=== PATIENT | female | born 2005 | race American Indian/Alaskan Native ===

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

== ENCOUNTER 2025-07-11 16:19 | Observation (INO) | payer SELFPAY ==
[2025-07-11] MEDS ORDERED: Lactated Ringers 1,000 ML IV ONE (16:49)
[2025-07-11] MEDS ORDERED: fentaNYL 100 MCG/2 ML SDV IVPUSH PRN (16:49)
[2025-07-11] MEDS ORDERED: Carboprost Tromethamine 250 MCG/1 ML Amp IM PRN (16:49)
[2025-07-11] MEDS ORDERED: Sodium Chloride 0.9% 10 ML Syringe FLUSH PRN (16:49)
[2025-07-11] MEDS ORDERED: Ondansetron 4 MG/2 ML SDV IVPUSH PRN (16:49)
[2025-07-11] MEDS ORDERED: Nalbuphine HCl 10 MG/ 1ML Amp IM ONE (16:51)
[2025-07-11] MEDS ORDERED: Oxytocin/Lactated Ringers 30 UNIT/500 ML BAG IV SCH (17:00)
[2025-07-11] MEDS ORDERED: Lactated Ringers 1,000 ML IV SCH (17:00)
[2025-07-11 17:27] LABS: PLATELET COUNT,PLT 154.0 10^3/uL (150-450); RED BLOOD CELL COUNT 4.16 10^6/uL (4.2-5.4); WHITE BLOOD CELL COUNT,WBC 7.8 10^3/uL (5.0-10.0)
[2025-07-11 19:46] VITALS: BP 132/68; PULSE 97
== END 2025-07-11 20:21 | disposition home or self-care (01) ==
LOC: DL.OBCHECK 16:19 → DL.OB 16:49
PROVIDERS: ADMIT Family Medicine; ATTEND Family Medicine
DX: O47.1 False labor at or after 37 completed weeks of gestation (principal); O99.013 Anemia complicating pregnancy, third trimester; D64.9 Anemia, unspecified; F17.290 Nicotine dependence, other tobacco product, uncomplicated; Z3A.37 37 weeks gestation of pregnancy; Z79.899 Other long term (current) drug therapy
CPT/HCPCS: 36415; 85027; A9270-GY; G0378

== ENCOUNTER 2025-07-15 19:59 | Inpatient (IN) | payer SELFPAY ==
[2025-07-15] MEDS: Lactated Ringers 1,000 ML IV SCH ×2 (20:24→23:16)
[2025-07-15 20:49] LABS: BASOPHILS PERCENT AUTO 0.1 % (0.0-1.0); EOSINOPHILS PERCENT AUTO 0.4 % (1.0-3.0); LYMPHOCYTES PERCENT AUTO 24.1 % (20.5-50.1); MONOCYTES PERCENT AUTO 6.2 % (2-8); NEUTROPHILS PERCENT AUTO 69.2 % (42.2-75.2); PLATELET COUNT,PLT 307 10^3/uL (150-450); RED BLOOD CELL COUNT 3.95 10^6/uL (4.2-5.4); WHITE BLOOD CELL COUNT,WBC 7.8 10^3/uL (5.0-10.0)
[2025-07-15 21:09] LABS: ALANINE AMINOTRANSFERASE,ALT 17 U/L (14-59); ASPARTATE AMNIOTRANSFERASE,AST 14 U/L (15-37); BILIRUBIN TOTAL 0.6 mg/dL (0.2-1.0); BLOOD UREA NITROGEN,BUN 8 mg/dL (7-18); CARBON DIOXIDE,CO2 23 mmol/L (21-32); CHLORIDE,CL 104 mmol/L (98-107); CREATININE 0.59 mg/dL (0.55-1.02); GLUCOSE RANDOM 138 mg/dL (70-99); POTASSIUM,K 3.5 mmol/L (3.5-5.1); PROTEIN TOTAL,TP 6.8 g/dL (6.4-8.2); SODIUM,NA 138 mmol/L (136-145)
[2025-07-15 21:11] LABS: A/G RATIO 0.70; ESTIMATED GFR 132 mL/min (>=60)
[2025-07-15] MEDS ORDERED: Carboprost Tromethamine 250 MCG/1 ML Amp IM PRN (22:57)
[2025-07-15] MEDS ORDERED: Ondansetron 4 MG/2 ML SDV IVPUSH PRN (22:57)
[2025-07-15] MEDS ORDERED: Sodium Chloride 0.9% 10 ML Syringe FLUSH PRN (22:57)
[2025-07-15] MEDS ORDERED: Lactated Ringers 1,000 ML IV ONE (22:57)
[2025-07-15] MEDS: Oxytocin/Normal Saline 30 UNIT/500 ML BAG IV SCH (23:16)
[2025-07-16] MEDS ORDERED: ePHEDrine 50 MG/ML SDV IVPUSH PRN (01:14)
[2025-07-16] MEDS ORDERED: Ropivacaine 200 MG in Premix Bag 1 BAG EPIDUR SCH (01:15)
[2025-07-16] MEDS ORDERED: Oxytocin 10 Units/1 ML SDV IM PRN (05:49)
[2025-07-16] MEDS ORDERED: Carboprost Tromethamine 250 MCG/1 ML Amp IM PRN (05:49)
[2025-07-16] MEDS: Witch Hazel Medicated Pads 100/Jar TOP PRN (08:04)
[2025-07-16] MEDS: Benzocaine/Menthol 20%-0.5% Spray 78 GM Cannister TOP PRN (08:04)
[2025-07-16] MEDS: Prenatal Multivitamin with Calcium/Folic Acid/Iron Tab PO SCH (08:05)
[2025-07-17 09:59] VITALS: BP 115/58; PULSE 72
== END 2025-07-17 13:40 | disposition home or self-care (01) | DRG 807 ==
LOC: DL.OBCHECK 19:59 → DL.OB 22:57 → OBSVTOIN 07-16 05:31
PROVIDERS: ADMIT Family Medicine; ATTEND Family Medicine
PROC: 10E0XZZ Delivery of Products of Conception, External Approach (ICD-10-PCS; principal; 2025-07-16)
PROC: 3E0R3BZ Introduction of Anesthetic Agent into Spinal Canal, Percutaneous Approach (ICD-10-PCS; 2025-07-16)
PROC: 00HU33Z Insertion of Infusion Device into Spinal Canal, Percutaneous Approach (ICD-10-PCS; 2025-07-16)
DX: O23.43 Unspecified infection of urinary tract in pregnancy, third trimester (principal); Z37.0 Single live birth; O77.0 Labor and delivery complicated by meconium in amniotic fluid; O76 Abnormality in fetal heart rate and rhythm complicating labor and delivery; Z3A.38 38 weeks gestation of pregnancy
CPT/HCPCS: 36415; 59409; 80053; 83605; 85025; 86850; 86900; 86901; 87040; A9270-GY; J0696; J2590; J7030; J7120

== ENCOUNTER 2025-07-29 11:58 | Observation (INO) | payer SELFPAY ==
[2025-07-29] MEDS ORDERED: Ondansetron 4 MG Tab.DIS PO PRN (13:04)
[2025-07-29] MEDS: Clindamycin in 0.9 % Sod Chlor 900 MG in Premix Bag 1 BAG IV SCH (14:01)
[2025-07-29] MEDS: Witch Hazel Medicated Pads 100/Jar TOP PRN (17:47)
[2025-07-29 21:07] LABS: CREATININE 0.7 mg/dL (0.55-1.02); EST CRCL DRUG DOSING (CG) 110.7 mL/min
[2025-07-29 21:08] LABS: ESTIMATED GFR 127.0 mL/min (>=60)
[2025-07-30 15:03] VITALS: BP 113/60; PULSE 74
== END 2025-07-30 15:40 | disposition home or self-care (01) ==
LOC: INTOOBSV 12:51 → UNDOADMOB 12:51 → DL.MS 12:51
PROVIDERS: ADMIT Family Medicine; ATTEND Family Medicine
DX: O86.12 Endometritis following delivery (principal); O87.2 Hemorrhoids in the puerperium; D50.9 Iron deficiency anemia, unspecified; E88.09 Other disorders of plasma-protein metabolism, not elsewhere classified
CPT/HCPCS: 36415; 80170; 82565; 96365; 96366; 96367; 96376; A9270-GY; G0378; J0737; J1580

== ENCOUNTER 2025-10-06 06:55 | Emergency (ER) | payer MEDICAID ==
[2025-10-06 07:29] LABS: BASOPHILS PERCENT AUTO 0.4 % (0.0-1.0); EOSINOPHILS PERCENT AUTO 1.7 % (1.0-3.0); LYMPHOCYTES PERCENT AUTO 34.6 % (20.5-50.1); MONOCYTES PERCENT AUTO 8.5 % (2-8); NEUTROPHILS PERCENT AUTO 54.8 % (42.2-75.2); PLATELET COUNT,PLT 383 10^3/uL (150-450); RED BLOOD CELL COUNT 4.39 10^6/uL (4.2-5.4); WHITE BLOOD CELL COUNT,WBC 9.6 10^3/uL (5.0-10.0)
[2025-10-06 07:37] LABS: HCG QUALITATIVE,SERUM NEGATIVE (NEGATIVE)
[2025-10-06 07:39] LABS: A/G RATIO 1.0; ALANINE AMINOTRANSFERASE,ALT 129 U/L (14-59); ASPARTATE AMNIOTRANSFERASE,AST 89 U/L (15-37); BILIRUBIN TOTAL 0.5 mg/dL (0.2-1.0); BLOOD UREA NITROGEN,BUN 18 mg/dL (7-18); CARBON DIOXIDE,CO2 26 mmol/L (21-32); CHLORIDE,CL 106 mmol/L (98-107); CREATININE 0.88 mg/dL (0.55-1.02); EST CRCL DRUG DOSING (CG) 88.06 mL/min; GLUCOSE RANDOM 102 mg/dL (70-99); POTASSIUM,K 3.8 mmol/L (3.5-5.1); PROTEIN TOTAL,TP 7.6 g/dL (6.4-8.2); SODIUM,NA 140 mmol/L (136-145)
[2025-10-06 07:41] LABS: APPEARANCE,URINE CLEAR (CLEAR); GLUCOSE,URINE NEGATIVE (NEGATIVE); OCCULT BLOOD,URINE NEGATIVE (NEGATIVE)
[2025-10-06 07:42] LABS: ESTIMATED GFR 96 mL/min (>=60)
[2025-10-06] MEDS: Ondansetron 4 MG/2 ML SDV IVPUSH ONE (07:47)
[2025-10-06] MEDS: Take Home: Ondansetron 4 MG Tab.DIS, 5 Tab Pack PO ONE (08:42)
[2025-10-06 08:51] VITALS: BP 126/82; PULSE 85
== END 2025-10-06 08:44 | disposition home or self-care (01) ==
LOC: DL.ED 06:55
DX: R11.2 Nausea with vomiting, unspecified (principal); Z79.899 Other long term (current) drug therapy
CPT/HCPCS: 36415; 80053; 81003; 83735; 84703; 85025; 86140; 96361; 96374; 99284; J2405; J7030